=== PATIENT | female | born 1985 | race Caucasian/White ===

== ENCOUNTER 2018-04-12 05:55 | Day surgery (SDC) | payer OTHER ==
[~2018-04-12] VITALS: Ht 162.6 cm; Wt 83.9 kg
[2018-04-12] MEDS ORDERED: CEFAZOLIN SOD 1 GM in D5W 50 ML IV ONE (07:00)
[2018-04-12] MEDS ORDERED: DEXTROSE 50% JECT 50 ML DISP.SYRIN IVP ONE (07:05)
[2018-04-12] MEDS ORDERED: FAMOTIDINE PF 20 MG/2 ML VIAL IVP ONE (07:05)
[2018-04-12] MEDS ORDERED: LR 1,000 ML IV.SOLN IV ONE (07:05)
[2018-04-12] MEDS ORDERED: PROPOFOL 200MG/ 20ML VIAL (DIPRIVAN) IV ONE (07:05)
[2018-04-12] MEDS ORDERED: BUPIVACAINE /PF 0.25% 30 ML VIAL INJ ONE (07:05)
[2018-04-12] MEDS ORDERED: ROPIVACAINE HCL/PF 0.2% (NAROPIN) 200 ML PLAST..BAG EP ONE (07:05)
[2018-04-12] MEDS ORDERED: MIDAZOLAM HCL 5 MG/5 ML VIAL IVP ONE (07:05)
[2018-04-12] MEDS ORDERED: ROPIVACAINE HCL/PF 5 MG/ML 0.5% 30 ML VIAL INJ ONE (07:05)
[2018-04-12] MEDS ORDERED: ONDANSETRON HCL 4 MG/2 ML VIAL IVP ONE (07:05)
[2018-04-12] MEDS ORDERED: fentaNYL CITRATE 250 MCG/5 ML AMP IV ONE (07:05)
[2018-04-12] MEDS ORDERED: DEXAMETHASONE SOD PHOSPHATE 4 MG/ML VIAL IVP ONE (07:05)
[2018-04-12] MEDS ORDERED: SEVOFLURANE 15 MIN GAS INH ONE (07:05)
[2018-04-12] MEDS ORDERED: ROCURONIUM BROMIDE 10 MG/ML (ZEMURON) IV ONE (07:05)
[2018-04-12] MEDS ORDERED: KETOROLAC TROMETHAMINE 30 MG VIAL IVP ONE (07:05)
[2018-04-12] MEDS ORDERED: fentaNYL CITRATE/PF 100 MCG/2 ML AMP IVP ONE (07:05)
[2018-04-12] MEDS ORDERED: FAMOTIDINE PF 20 MG/2 ML VIAL ONE (08:30)
[2018-04-12] MEDS ORDERED: LR 1,000 ML IV SCH (09:09)
[2018-04-12] MEDS ORDERED: MEPERIDINE HCL/PF 25 MG/ML DISP.SYRIN IVP PRN (09:15)
[2018-04-12] MEDS ORDERED: HYDROmorphone 2 MG/ML VIAL IVP PRN ×3 (09:15)
[2018-04-12 11:48] VITALS: BP_SYST 120
[2018-04-12] MEDS ORDERED: OXYCODONE/ACETAMINOPHEN 5-325 TABLET PO PRN ×2 (12:30)
[2018-04-12] MEDS ORDERED: HYDROcodone/ACETAMIN 5-325 MG TAB (NORCO/ VICODIN) PO PRN (12:30)
[2018-04-12] MEDS ORDERED: ONDANSETRON HCL 4 MG/2 ML VIAL IVP PRN (12:30)
[2018-04-12] MEDS ORDERED: OXYCODONE/ACETAMINOPHEN 5-325 TABLET ONE (12:45)
== END 2018-04-12 14:30 | disposition home or self-care (01) ==
LOC: SMU 05:55 → SDS 05:55
PROVIDERS: ATTEND Specialist
DX: N85.8 Other specified noninflammatory disorders of uterus (principal); N93.8 Other specified abnormal uterine and vaginal bleeding; R10.2 Pelvic and perineal pain; Z68.31 Body mass index [BMI] 31.0-31.9, adult; Z79.899 Other long term (current) drug therapy; M79.7 Fibromyalgia; E03.9 Hypothyroidism, unspecified; E66.01 Morbid (severe) obesity due to excess calories
CPT/HCPCS: 58552; 88307; C1727; J0690; J1100; J1885; J2250; J2405; J2704; J3010 ×2; J3490 ×2; J7060; J7120; S2900; E0190